=== PATIENT | female | born 1980 | race Two or more races ===

== ENCOUNTER 2024-04-18 08:44 | Emergency (ER) | payer BC, SELFPAY ==
[2024-04-18 08:52] VITALS: BP 115/80; PULSE 92; RESP 17; TEMP 36.9; O2SAT 99; BMI 32.8
[2024-04-18 10:03] LABS: Basophils % (Auto) 0 % (0-2.5); Eosinophils # (Auto) 0.1 Thou/mm3 (0.0-0.5); Eosinophils % (Auto) 1 % (0-10); Hematocrit 39.5 % (36.0-46.0); Hemoglobin 12.7 g/dL (12.0-16.0); Immature Granulocytes % (Auto) 0 % (0-0); Immature Granulocytes Auto 0.02 Thou/mm3 (0.00-0.00); Lymphocytes # (Auto) 2.9 Thou/mm3 (1.0-4.8); Lymphocytes % (Auto) 27 % (10-50); Mean Corpuscular HGB Conc 32.2 g/dl (31.0-37.0); Mean Corpuscular Hemoglobin 25.9 pg (25.0-35.0); Mean Corpuscular Volume 80 fL (80-100); Monocytes # (Auto) 0.5 Thou/mm3 (0.0-0.8); Monocytes % (Auto) 5 % (0-12); Neutrophils # (Auto) 7.2 Thou/mm3 (1.8-7.7); Neutrophils % (Auto) 67 % (37-80); Nucleated Red Blood Cell % 0 /100 WBC (0); Platelet Count 381 Thou/mm3 (140-440); RDW Standard Deviation 38.4 fL (36.4-46.3); Red Blood Count 4.91 Miln/mm3 (4.00-5.20); White Blood Count 10.8 Thou/mm3 (3.6-11.0)
--- NOTE | 2024-04-18 10:06 | PD.EDRME ---
Rapid Medical Screening Exam RME Arrival date/time: 04/18/24 08:44 44-year-old female presents emergency department today patient reports had outpatient labs on and was told that her potassium was elevated and to come to the ER for further evaluation Chief Complaint: Recheck/Abnormal Lab/Rx Time Seen by Provider: 04/18/24 09:02 Vital signs: Vital Signs Temperature 98.5 F 04/18/24 08:52 Pulse Rate 92 04/18/24 08:52 Respiratory Rate 17 04/18/24 08:52 Blood Pressure 115/80 04/18/24 08:52 Pulse Oximetry (%) 99 04/18/24 08:52 Oxygen Delivery Method Room Air 04/18/24 08:52
[2024-04-18 10:16] LABS: HCG,Qualitative Serum Negative
[2024-04-18 10:22] LABS: Alanine Aminotransferase 16 U/L (10-49); Albumin, Serum 4.7 gm/dL (3.5-5.0); Albumin/Globulin Ratio 1.9 (1.2-2.2); Alkaline Phosphatase 62 U/L (46-116); Anion Gap 7 (7-16); Aspartate Amino Transferase 19 U/L (0-34); BUN/Creatinine Ratio 16 Ratio (12-20); Bilirubin,Total 0.4 mg/dL (0.3-1.2); Blood Urea Nitrogen 14 mg/dL (9-23); Calcium 9.9 mg/dL (8.3-10.6); Calcium (Corrected) 9.9 mg/dL (8.5-10.1); Carbon Dioxide 26.5 mMol/L (20.0-31.0); Chloride 103 mMol/L (98-107); Creatinine (Component) 0.9 mg/dL (0.6-1.3); Globulin 2.5 gm/dL (2.3-3.5); Glucose 88 mg/dL (74-106); Osmolality,Calculated 271 (275-295); Potassium 4.5 mMol/L (3.4-5.1); Sodium 136 mMol/L (136-145); Total Protein 7.2 gm/dL (5.7-8.2); eGFR > 60 See Note
--- NOTE | 2024-04-18 10:39 | PD.EDRECHK ---
ED Recheck Abnl Lab Rx-RME/HPI General Chief Complaint: Recheck/Abnormal Lab/Rx Stated Complaint: PCP SENT FOR HIGH POTASSIUM 6.7 Time Seen by Provider: 04/18/24 09:02 Arrival date/time: 04/18/24 08:44 44-year-old female presents the emergency department today stating that she had outpatient labs done on she was told that her potassium is elevated and was instructed to come to the ER for further evaluation patient reports no symptoms no chest pain no shortness of breath no headache dizziness weakness Limitations: no limitations RME / HPI RME / HPI narrative: 04/18/24 08:44 44-year-old female presents emergency department today patient reports had outpatient labs on and was told that her potassium was elevated and to come to the ER for further evaluation Related Data Allergies Allergy/AdvReac Type Severity Reaction Status Date / Time NKA Allergy Unknown Uncoded 04/18/24 08:46 No Known Allergies Allergy Unknown Uncoded 04/18/24 08:46 Review of Systems Review of Systems Systems Reviewed: All systems reviewed, normal except as documented Constitutional Constitutional: Reports system reviewed and no additional complaints, except as documented, Denies fever(s) and Denies headache(s) Eyes Eyes: Reports system reviewed and no additional complaints, except as documented and Denies blurry vision ENT Ears, Nose, Mouth, and Throat: Reports system reviewed and no additional complaints, except as documented, Denies headache(s), Denies nasal congestion and Denies nasal discharge Cardiovascular Cardiovascular: Reports system reviewed and no additional complaints, except as documented, Denies chest pain and Denies dyspnea Respiratory Respiratory: Reports system reviewed and no additional complaints, except as documented, Denies chest congestion, Denies cough and Denies dyspnea Gastrointestinal Gastrointestinal: Reports system reviewed and no additional complaints, except as documented and Denies abdominal pain Integumentary/Breasts Skin/Breast: Reports system reviewed and no additional complaints, except as documented and Denies rash Neurologic Neurologic: Reports system reviewed and no additional complaints, except as documented, Reports as per HPI and Denies headache(s) Past Medical History Social History SMOKING STATUS: Never smoker ED Exam General Limitations: Present no limitations General appearance: Present alert and in no apparent distress Head Head exam: Present atraumatic, normocephalic and normal inspection Eye Eye exam: Present normal appearance, PERRL and EOMI; Absent conjunctival injection ENT ENT exam: Present normal exam, normal oropharynx and mucous membranes moist Neck Neck exam: Present normal inspection, full ROM and trachea midline Chest Chest inspection: Present normal inspection and symmetric chest wall rise Respiratory Respiratory exam: Present normal lung sounds bilaterally; Absent respiratory distress, wheezes, stridor or accessory muscle use Cardiovascular Cardiovascular exam: Present regular rate, normal rhythm and normal heart sounds Abdominal Exam Abdominal exam: Present soft and normal bowel sounds Extremities Exam Extremities exam: Present normal inspection and full ROM Back Exam Back exam: Present normal inspection and full ROM Neurological Exam Neurological exam: Present alert, oriented X3 and CN II-XII intact Psychiatric Psychiatric exam: Present normal affect and normal mood Skin Skin exam: Present warm, dry, intact and normal color Course Quality Measures none Orders Category Date Time Status CBC Stat Lab 04/18/24 09:46 Completed CMP [Comprehensive Metabolic Panel] Stat Lab 04/18/24 09:46 Completed HCG,Qualitative Serum Stat Lab 04/18/24 09:46 Completed Mag [Magnesium] Stat Lab 04/18/24 09:46 Completed Vital Signs Vital signs: Vital Signs Temperature 98.5 F 04/18/24 08:52 Pulse Rate 92 04/18/24 08:52 Respiratory Rate 17 04/18/24 08:52 Blood Pressure 115/80 04/18/24 08:52 Pulse Oximetry (%) 99 04/18/24 08:52 Oxygen Delivery Method Room Air 04/18/24 08:52 O2 saturation 99% room air within normal limits Recheck / Abnormal Lab / Rx MDM Narrative MDM Narrative:: 44-year-old female presents the emergency department today stating that she had outpatient labs done on she was told that her potassium is elevated and was instructed to come to the ER for further evaluation patient reports no symptoms no chest pain no shortness of breath no headache dizziness weakness On exam patient well-appearing patient does not appear ill or toxic in no acute distress Lab work obtained patient's potassium is normal as I suspected Patient discharged home in no distress to follow-up with primary care doctor in the next 24 to 48 hours and for any worsening symptoms to return to the ER immediately Patient data External records reviewed:: [facility] previous records Clinical information provided by:: patient Social determinants that could affect healthcare access:: none Patient has the following chronic illnesses:: None How is presenting disease/condition affected by chronic disease/condition?: no chronic disease Evaluation data The following diagnostics were reviewed and interpreted by me:: lab results Lab and/or radiology exams considered but not ordered:: Labs obtained Interpretation Summary: Reviewed by me Medications / Prescriptions Medications or Prescriptions considered but not ordered:: Given no meds Medication administrations:: Given no meds Consultations Consultation(s) initiated? (list below): No Diagnosis Recheck Differential Diagnosis: other (Hyperkalemia, abnormal labs) Most likely diagnosis given after review of the tests above:: Normal exam Admission Indicated Admission indicated?: not indicated Admission Request Was there a request for admission?: No Disposition Plan Disposition Plan: Discharge Discharge Attestation Discharge Attestation: The patient and all family members were given an opportunity to ask questions and understood the discharge instructions. Discharge instructions specifically effects, indications for sooner follow up or return to the emergency department, and the expected course of current diagnosis. Patient condition: Stable Discharge Plan Plan Patient Disposition: HOME (Self Care) Disposition Comment: Stable Prescriptions/Referrals Referrals: MAICO KRAUSE [Other] - In 1 week Problem List Clinical Impression: Abnormal laboratory test Patient/Caregiver Discharge Instructions Additional Instructions: Please follow up with your primary care doctor in the next 24-48hrs for any worsening symptoms return here immediately Print Language: Latvian Stand Alone Forms: Julienne Award Info., Work/School Release, Patient Portal Info Letter PA/ANJALI Supervising Physician MIKE/ANJALI Supervising Physician: Dr. Quintero
--- NOTE | 2024-04-18 10:45 | PC.NURSE ---
Pt left without discharge instructions; pt released by provider.
== END 2024-04-18 10:47 | disposition home or self-care (01) ==
PROVIDERS: Nurse Practitioner Primary Care; Emergency Provider Emergency Medicine
DX: R79.9 Abnormal finding of blood chemistry, unspecified (principal)
CPT/HCPCS: 36415; 80053; 83735; 84703; 85025; 99283